=== PATIENT | female | born 1970 | race African-American/Black ===

== ENCOUNTER 2020-03-27 13:56 | Emergency (ER) | payer SELFPAY ==
--- NOTE | 2020-03-27 15:02 | RAD REPORT ---
EXAM DESCRIPTION: RAD - Shoulder Left 2 View - 03/27/2020 2:36 pm CLINICAL HISTORY: pain, swelling COMPARISON: No comparisons FINDINGS: No acute fracture or dislocation is seen. Mild AC joint and glenohumeral joint arthritic c hanges are present. Bony spurring is seen along the lateral the humeral head.
[2020-03-27] MEDS ORDERED: KETOROLAC 30 MG/ML INJ ONE (16:01)
--- NOTE | 2020-03-27 16:05 | ER ---
Nurse's Notes [facility] Name: Kelly Toussaint Age: 49 yrs Sex: Female : 1970 Arrival Date: 03/27/2020 Time: 13:57 Bed 20 Private MD: Diagnosis: Sprain of deltoid ligament Presentation: 03/27 14:03 Chief complaint: Left shoulder and arm pain 10/10 after mechanical fall from standing hb yesterday. Coronavirus screen: At this time, the client does not indicate any symptoms associated with coronavirus-19. Ebola Screen: No symptoms or risks identified at this time. Initial Sepsis Screen: Does the patient meet any 2 criteria? No. Patient's initial sepsis screen is negative. Does the patient have a suspected source of infection? No. Patient's initial sepsis screen is negative. Risk Assessment: Do you want to hurt yourself or someone else? Patient reports no desire to harm self or others. Onset of symptoms was March 26, 2020. 14:03 Method Of Arrival: Ambulatory hb 14:03 Acuity: ESTEFANÍA 4 hb Historical: - Allergies: 14:04 No Known Allergies; hb - Immunization history:: Adult Immunizations up to date. - Social history:: Smoking status: Patient reports the use of cigarette tobacco products, smokes one-half pack cigarettes per day. Screenin:07 Abuse screen: Denies threats or abuse. Denies injuries from another. Nutritional hb screening: No deficits noted. Tuberculosis screening: No symptoms or risk factors identified. Fall Risk None identified. Assessment: 14:07 General: Appears in no apparent distress. uncomfortable, Behavior is calm, cooperative. hb Pain: Pain currently is 10 out of 10 on a pain scale. Neuro: Level of Consciousness is awake, alert, obeys commands, Oriented to person, place, time, situation. Cardiovascular: Patient's skin is warm and dry. Respiratory: Respiratory effort is even, unlabored, Respiratory pattern is regular, symmetrical. GI: No signs and/or symptoms were reported involving the gastrointestinal system. : No signs and/or symptoms were reported regarding the genitourinary system. EENT: No signs and/or symptoms were reported regarding the EENT system. Derm: Skin is pink, warm \T\ dry. Musculoskeletal: Reports left shoulder and arm pain. 15:01 Reassessment: Patient appears in no apparent distress at this time. Patient and/or ca1 family updated on plan of care and expected duration. Pain level reassessed. Patient is alert, oriented x 3, equal unlabored respirations, skin warm/dry/pink. 15:53 Reassessment: Patient appears in no apparent distress at this time. Patient and/or hb family updated on plan of care and expected duration. Pain level reassessed. Patient is alert, oriented x 3, equal unlabored respirations, skin warm/dry/pink. Vital Signs: 14:03 BP 138 / 77; Pulse 68; Resp 16; Temp 97.2; Pulse Ox 100% on R/A; Pain 10/10; hb 15:53 BP 128 / 78; Pulse 67; Resp 16; Pulse Ox 99% on R/A; hb ED Course: 13:57 Patient arrived in ED. ds1 14:04 Triage completed. hb 14:04 Arm band placed on. hb 14:07 Giselle Hansen, RN is Primary Nurse. hb 14:07 Patient has correct armband on for positive identification. Bed in low position. Call light in reach. 14:12 Chris Myles PA is PHCP. [facility] 14:12 Faisal Arguello MD is Attending Physician. [facility] 14:36 Shoulder Left (2 View) XRAY In Process Unspecified. EDMS 16:04 Alejandro Portillo MD is Referral Physician. [facility] 16:14 No provider procedures requiring assistance completed. Patient did not have IV access ca1 during this emergency room visit. Administered Medications: 15:52 Drug: Ketorolac 30 mg Route: IM; Site: right deltoid; hb Outcome: 16:05 Discharge ordered by . [facility] 16:14 Discharged to home ambulatory, with family. ca1 16:14 Condition: stable 16:14 Discharge instructions given to patient, Instructed on discharge instructions, follow up and referral plans. medication usage, Demonstrated understanding of instructions, follow-up care, medications, Prescriptions given X 1. 16:16 Patient left the ED. ca1 Signatures: Dispatcher [employer] EDMS Chris Myles PA PA jmm Sanford, Demi ds1 Giselle Hansen RN RN Sara Murcia RN RN ca1
--- NOTE | 2020-03-27 16:05 | EDPHYS ---
Physician Documentation [facility] Name: Kelly Toussaint Age: 49 yrs Sex: Female : 1970 Arrival Date: 03/27/2020 Time: 13:57 Bed 20 Private MD: ED Physician Faisal Arguello HPI: 03/27 16:16 This 49 yrs old Black Female presents to ER via Ambulatory with complaints of Arm Pain. jmm 16:16 The patient or guardian complains of injury, pain. Onset: The symptoms/episode jmm began/occurred acutely, 1 day(s) ago. Modifying factors: The symptoms are alleviated by remaining still, the symptoms are aggravated by movement. This is a 49 year old female that presents to the ED after a fall which occurred yesterday, Patient states she developed left arm pain while attempting to get up. Denies other known injury. . Historical: - Allergies: 14:04 No Known Allergies; hb - Immunization history:: Adult Immunizations up to date. - Social history:: Smoking status: Patient reports the use of cigarette tobacco products, smokes one-half pack cigarettes per day. ROS: 16:16 Constitutional: Negative for fever, chills, and weight loss, Cardiovascular: Negative jmm for chest pain, palpitations, and edema, Respiratory: Negative for shortness of breath, cough, wheezing, and pleuritic chest pain. 16:16 MS/extremity: Positive for pain. 16:16 All other systems are negative. Exam: 16:16 Constitutional: This is a well developed, well nourished patient who is awake, alert, jmm and in no acute distress. Head/Face: atraumatic. Eyes: EOMI, no conjunctival erythema appreciated ENT: Moist Mucus Membranes Neck: Trachea midline, Supple Chest/axilla: Normal chest wall appearance and motion. Cardiovascular: Regular rate and rhythm. No edema appreciated Respiratory: Normal respirations, no respiratory distress appreciated Abdomen/GI: Non distended, soft Back: Normal ROM Skin: General appearance color normal 16:16 Musculoskeletal/extremity: ROM: intact in all extremities. 16:16 Musculoskeletal/extremity: left deltoid TTP, full it operations specialist strength, pain on abduction. compartments are soft, NVI. 16:16 Skin: Appearance: Color: normal in color. 16:16 Neuro: Orientation: is normal, Mentation: is normal, Memory: is normal. 16:16 Psych: Behavior/mood is pleasant, cooperative. Vital Signs: 14:03 BP 138 / 77; Pulse 68; Resp 16; Temp 97.2; Pulse Ox 100% on R/A; Pain 10/10; hb 15:53 BP 128 / 78; Pulse 67; Resp 16; Pulse Ox 99% on R/A; hb MDM: 14:18 Patient medically screened. [facility] 16:03 Data reviewed: vital signs, nurses notes. Counseling: I had a detailed discussion with [facility] the patient and/or guardian regarding: the historical points, exam findings, and any diagnostic results supporting the discharge/admit diagnosis, radiology results, the need for outpatient follow up, to return to the emergency department if symptoms worsen or persist or if there are any questions or concerns that arise at home. ED course: PE and history concerning for deltoid strain. Advised to follow up with pcp and otherwise given strict return precautions. Patient understood and agrees with the plan of care. . 03/27 14:19 Order name: Shoulder Left (2 View) XRAY; Complete Time: 15:23 [facility] 03/27 15:35 Order name: Sling; Complete Time: 15:52 [facility] Administered Medications: 15:52 Drug: Ketorolac 30 mg Route: IM; Site: right deltoid; hb Disposition: 16:52 Co-signature as Attending Physician, Faisal Arguello MD. rn Disposition: 03/27/20 16:05 Discharged to Home. Impression: Sprain of deltoid ligament. - Condition is Stable. - Discharge Instructions: Deltoid Disruption. - Prescriptions for Ibuprofen 800 mg Oral Tablet - take 1 tablet by ORAL route every 8 hours As needed take with food; 30 tablet. - Medication Reconciliation Form, Thank You Letter, Antibiotic Education, Prescription Opioid Use, Work release form form. - Follow up: Alejandro Portillo MD; When: 2 - 3 days; Reason: Recheck today's complaints, Continuance of care, Re-evaluation by your physician. Signatures: Dispatcher [employer] EDMS Chris Myles PA PA [facility] Faisal Arguello MD MD rn Baxter, Heather, RN RN Acob, MARY Ruiz RN [facility] Corrections: (The following items were deleted from the chart) 16:16 16:05 03/27/2020 16:05 Discharged to Home. Impression: Sprain of deltoid ligament. ca1 Condition is Stable. Forms are Medication Reconciliation Form, Thank You Letter, Antibiotic Education, Prescription Opioid Use. Follow up: Alejandro Portillo; When: 2 - 3 days; Reason: Recheck today's complaints, Continuance of care, Re-evaluation by your physician. leslie
[2020-03-27 20:01] VITALS: TEMP 97.2
[2020-03-27 20:03] VITALS: BP 128/78; O2SAT 99
== END 2020-03-27 16:16 | disposition home or self-care (01) ==
LOC: ER 13:56
DX: S43.492A Other sprain of left shoulder joint, initial encounter (principal); W19.XXXA Unspecified fall, initial encounter; Y93.9 Activity, unspecified; Y92.9 Unspecified place or not applicable; F17.210 Nicotine dependence, cigarettes, uncomplicated
CPT/HCPCS: 96372; 99283